=== PATIENT | female | born 1970 | race American Indian/Alaskan Native ===

== ENCOUNTER 2019-09-13 16:45 | Emergency (ER) | payer SELFPAY ==
[2019-09-13 17:54] VITALS: BP 108/57
--- NOTE | 2019-09-13 17:58 | Event Note ---
ED Screening Note Date of service: 09/13/19 Time: 17:54 ED Screening Note: This is a 48 y.o. F. that presents to the ER with vertigo, headache, and lower abdominal pain x 8 days. Patient reports syncopal episode x 2 today. This is something new for her. PMH of gastric bypass and anemia. This initial assessment/diagnostic orders/clinical plan/treatment(s) is/are subject to change based on patients health status, clinical progression and re- assessment by fellow clinical providers in the ED. Further treatment and workup at subsequent clinical providers discretion. Patient/guardian urged not to elope from the ED as their condition may be serious if not clinically assessed and managed. Initial orders include: CT of abdomen, head, and labs
[2019-09-13 18:44] LABS: Hematocrit 28.3 % (30.3-42.9); Hemoglobin 8.6 gm/dl (10.1-14.3); Mean Corpuscular HGB Conc 30 % (30-34); Platelet Count 336 K/mm3 (140-440); Red Blood Count 4.32 M/mm3 (3.65-5.03)
[2019-09-13 18:45] LABS: Mean Corpuscular Volume 66 fl (79-97)
[2019-09-13 18:46] LABS: Red Cell Distribution Width 29.2 % (13.2-15.2)
[2019-09-13 18:58] LABS: Alanine Aminotransferase 11 units/L (7-56); Albumin 3.9 g/dL (3.9-5); BUN/Creatinine Ratio 27; Blood Urea Nitrogen 16 mg/dL (7-17); Calcium 8.7 mg/dL (8.4-10.2); Hemolysis Index 2
[2019-09-13 20:40] LABS: Basophils % (Manual) 0 % (0.0-1.8); Eosinophils % (Manual) 0 % (0.0-4.3); Total Cells Counted 100
[2019-09-13 20:41] LABS: Anisocytosis 1+
[2019-09-13 20:42] LABS: Dimorphic RBC Yes; Hypochromasia 2+; Large Platelets 2+; Ovalocytes 2+; Target Cells 2+
[2019-09-13 20:43] LABS: Platelet Estimate Consistent w Auto; Tear Drop Cells Rare
== END 2019-09-13 19:30 | disposition left against medical advice (07) ==
LOC: ED 16:45
DX: R51 Headache (principal); Z53.21 Procedure and treatment not carried out due to patient leaving prior to being seen by health care provider
CPT/HCPCS: 36415; 80053; 83690; 84703; 85007; 85025